=== PATIENT | female | born 1990 | race Caucasian/White ===

== ENCOUNTER 2025-05-20 15:07 | Emergency (ER) | payer MEDICAID ==
[~2025-05-20] VITALS: Ht 154.9 cm; Wt 78.0 kg
[2025-05-20 15:16] VITALS: O2SAT 99
[2025-05-20 15:35] LABS: CLARITY URINE CLEAR (CLEAR); COLOR URINE YELLOW (YELLOW); GLUCOSE URINE NEGATIVE (NEGATIVE); KETONES URINE NEGATIVE (NEGATIVE); LEUKOCYTE ESTERASE URINE 1+ (NEGATIVE); NITRITE URINE NEGATIVE (NEGATIVE); OCCULT BLOOD URINE 3+ (NEGATIVE); PH URINE 5.5 (4.5-8.0); PROTEIN URINE NEGATIVE (NEGATIVE); SPECIFIC GRAVITY URINE 1.008 (1.005-1.030); UROBILINOGEN URINE 0.2 E.U./dL (0.2-1.0)
[2025-05-20 16:05] LABS: RBC URINE 25-50 /hpf (0-2); WBC URINE 0-2 /hpf (0-2)
[2025-05-20 16:06] LABS: BACTERIA URINE TRACE; SQUAMOUS EPITHELIAL CELL URINE 1+ /lpf (RARE/1+)
[2025-05-20] MEDS: ONDANSETRON 4MG ODT PO ONE (16:27)
[2025-05-20] MEDS: ACETAMINOPHEN 500MG TABLET PO ONE (16:27)
[2025-05-20 16:41] LABS: BASOPHILS % 0.5 % (0.0-2.0); EOSINOPHILS % 1.1 % (0.0-5.0); HEMATOCRIT. 34.8 % (36.0-48.0); HEMOGLOBIN. 11.6 g/dL (12.0-16.0); LYMPHOCYTES % 18.8 % (20.0-50.0); MEAN PLATELET VOLUME 8.2 fl (7.4-10.4); MONOCYTES % 7.2 % (2.0-8.0); NEUTROPHILS % 72.4 % (40.0-76.0); PLATELET 244 x1000/uL (130-400); RED BLOOD CELL COUNT 4.56 mill/uL (4.2-5.4); RED CELL DISTRIBUTION WIDTH 22.1 % (11.6-14.6)
[2025-05-20 16:43] LABS: CREATININE 0.6 mg/dL (0.6-1.0); UREA NITROGEN BLOOD 8 mg/dL (9-23)
[2025-05-20 16:47] LABS: ADD RBC MORPHOLOGY YES
[2025-05-20 17:17] LABS: HCG SCREEN NEGATIVE
[2025-05-20] MEDS ORDERED: ONDA-239 PO (17:58)
[2025-05-20] MEDS ORDERED: CEPH500C2 MT (17:58)
[2025-05-20] MEDS ORDERED: NAPR-681 PO (17:58)
[2025-05-20 18:00] LABS: PLATELET ESTIMATE NORMAL
[2025-05-20 18:25] VITALS: BP 115/64; PULSE 78; RESP 12; TEMP 36.8; O2SAT 100
== END 2025-05-20 18:30 | disposition home or self-care (01) ==
LOC: ER 15:07
DX: N39.0 Urinary tract infection, site not specified (principal); N93.9 Abnormal uterine and vaginal bleeding, unspecified; I10 Essential (primary) hypertension; R10.2 Pelvic and perineal pain
CPT/HCPCS: 99284; 76830; 76856; 80048; 81003; 81025; 84703; 85025; 86850; 86900; 86901; 87086; 87186; 87077; 36415; Q0162